=== PATIENT | female | born 1935 | race Caucasian/White ===

== ENCOUNTER 2021-12-10 00:26 | Inpatient (IN) ==
[2021-12-10 02:32] LABS: ABS Eosinophils 0.1 10^3/ul (0-0.6); ABS Lymphocytes 0.6 10^3/ul (1.0-4.8); ABS Monocytes 0.7 10^3/ul (0-0.8); ABS Neutrophils 5.3 10^3/ul (1.5-7.7); Eosinophil % 1.4 %; Hematocrit 32 % (35-47); Hemoglobin 10.7 g/dL (12.0-16.0); Lymphocyte % 8.8 %; Mean Corpuscular HGB Conc 34 g/dL (31-36); Mean Corpuscular Hemoglobin 31 pg (27-31); Mean Corpuscular Volume 91 fL (80-97); Mean Platelet Volume 7.6 fL (7.4-10.4); Nucleated Red Blood Cells % 0.1; Platelet Count 215 10^3/uL (150-450); Red Blood Count 3.49 10^6 /uL (3.70-4.87); Red Cell Distribution Width 14 % (10-15); White Blood Count 6.7 10^3/uL (3.5-10.8)
[2021-12-10 02:34] LABS: INR 2.03 (0.89-1.11)
[2021-12-10 02:46] LABS: High Sens Troponin Baseline 17 pg/mL (<15)
[2021-12-10 03:46] LABS: High Sensitivity Troponin 1 Hr 14 pg/mL (<15)
[2021-12-10 03:47] LABS: ALT 26 U/L (7-52); Albumin 3.3 g/dL (3.2-5.2); Albumin/Globulin Ratio 1.5 (1-3); Alkaline Phosphatase 81 U/L (35-149); Blood Urea Nitrogen 19 mg/dL (6-24); CO2 Carbon Dioxide 25 mmol/L (22-32); Calcium 8.6 mg/dL (8.6-10.3); Chloride 95 mmol/L (101-111); Globulin 2.2 g/dL (2-4); Glucose 76 mg/dL (70-100); Magnesium 1.8 mg/dL (1.9-2.7); Sodium 126 mmol/L (135-145); Total Protein 5.5 g/dL (6.4-8.9); eGFR CKD-EPI 90.3 (>60)
[2021-12-10 03:49] LABS: Anion Gap 6 mmol/L (2-11)
[2021-12-10 04:01] LABS: TSH Ultra Thyroid Stim Horm 3.69 mcIU/mL (0.34-5.60)
[2021-12-10] MEDS ORDERED: NS 0.9% 1000 ml BAG 1,000 ML IV ONE (04:14)
[2021-12-10 04:44] LABS: Potassium Redraw 3.4 mmol/L (3.5-5.0)
[2021-12-10 05:18] LABS: Urine Appearance Cloudy; Urine Bilirubin Negative (Negative); Urine Blood Negative (Negative); Urine Color Yellow; Urine Glucose Negative (Negative); Urine Ketones Trace (Negative); Urine Nitrite Negative (Negative); Urine Protein 1+(30 mg/dL) (Negative); Urine Specific Gravity 1.016 (1.002-1.030); Urine Urobilinogen Negative (Negative)
[2021-12-10 05:20] LABS: Urine Bacteria 1+ (Absent); Urine Red Blood Cell 2+(6-10/hpf) (Absent); Urine Squamous Epithelial Cell Present (Absent); Urine White Blood Cell Absent (Absent)
[2021-12-10] MEDS ORDERED: Magnesium Sulfate IV 1GM/100ML 1 GM/100 ML BAG IV ONE (08:01)
[2021-12-10] MEDS ORDERED: Potassium Chlor 20 meq TAB.ER PO ONE (08:02)
[2021-12-10] MEDS ORDERED: Enoxaparin 40 MG/0.4 ML SYR SUBCUT SCH (09:00)
[2021-12-10 10:10] LABS: Calcium 8.4 mg/dL (8.6-10.3); Potassium 4.5 mmol/L (3.5-5.0); eGFR CKD-EPI 93.1 (>60)
[2021-12-10] MEDS: Potassium Chlor 10 meq TAB PO SCH (10:29)
[2021-12-10] MEDS ORDERED: NS 0.9% 500 ml BAG 500 ML IV ONE (12:21)
[2021-12-10 15:50] LABS: Urine Osmo 491 mOsm/kg (150-1150)
[2021-12-11 05:53] LABS: ABS Basophils 0.1 10^3/ul (0-0.2); ABS Eosinophils 0.1 10^3/ul (0-0.6); ABS Lymphocytes 0.6 10^3/ul (1.0-4.8); ABS Monocytes 0.6 10^3/ul (0-0.8); ABS Neutrophils 6.6 10^3/ul (1.5-7.7); Eosinophil % 1.4 %; Hematocrit 38 % (35-47); Hemoglobin 12.5 g/dL (12.0-16.0); Lymphocyte % 7.9 %; Mean Corpuscular HGB Conc 33 g/dL (31-36); Mean Corpuscular Hemoglobin 30 pg (27-31); Mean Corpuscular Volume 91 fL (80-97); Mean Platelet Volume 7.8 fL (7.4-10.4); Nucleated Red Blood Cells % 0.1; Platelet Count 231 10^3/uL (150-450); Red Blood Count 4.13 10^6 /uL (3.70-4.87); Red Cell Distribution Width 14 % (10-15); White Blood Count 8.1 10^3/uL (3.5-10.8)
[2021-12-11 06:09] LABS: Calcium 8.6 mg/dL (8.6-10.3); Potassium 4.6 mmol/L (3.5-5.0); eGFR CKD-EPI 93.1 (>60)
[2021-12-11] MEDS: Potassium Chlor 10 meq TAB PO SCH (08:29)
[2021-12-11] MEDS ORDERED: NS 0.9% 500 ml BAG 500 ML IV ONE (15:51)
[2021-12-12 06:35] LABS: ABS Eosinophils 0.1 10^3/ul (0-0.6); ABS Lymphocytes 0.5 10^3/ul (1.0-4.8); ABS Monocytes 0.8 10^3/ul (0-0.8); ABS Neutrophils 11.6 10^3/ul (1.5-7.7); Eosinophil % 0.4 %; Hematocrit 34 % (35-47); Hemoglobin 11.3 g/dL (12.0-16.0); Mean Corpuscular HGB Conc 33 g/dL (31-36); Mean Corpuscular Hemoglobin 30 pg (27-31); Mean Corpuscular Volume 91 fL (80-97); Mean Platelet Volume 7.5 fL (7.4-10.4); Platelet Count 257 10^3/uL (150-450); Red Blood Count 3.76 10^6 /uL (3.70-4.87); Red Cell Distribution Width 14 % (10-15)
[2021-12-12 07:10] LABS: Calcium 8.6 mg/dL (8.6-10.3); Magnesium 1.5 mg/dL (1.9-2.7); Potassium 4.5 mmol/L (3.5-5.0); eGFR CKD-EPI 93.1 (>60)
[2021-12-12] MEDS ORDERED: Magnesium Sulf 4 GM/100 ML IV 4,000 MG/100 ML BAG IVPB ONE (08:00)
[2021-12-12] MEDS: Potassium Chlor 10 meq TAB PO SCH (09:42)
[2021-12-12 10:39] LABS: C Reactive Protein 17.12 mg/L (<8.01)
[2021-12-13 05:40] LABS: ABS Eosinophils 0.1 10^3/ul (0-0.6); ABS Lymphocytes 0.4 10^3/ul (1.0-4.8); ABS Monocytes 0.8 10^3/ul (0-0.8); ABS Neutrophils 9.2 10^3/ul (1.5-7.7); Eosinophil % 0.7 %; Hematocrit 35 % (35-47); Hemoglobin 11.7 g/dL (12.0-16.0); Lymphocyte % 4.1 %; Mean Corpuscular HGB Conc 34 g/dL (31-36); Mean Corpuscular Hemoglobin 30 pg (27-31); Mean Corpuscular Volume 91 fL (80-97); Mean Platelet Volume 7.4 fL (7.4-10.4); Nucleated Red Blood Cells % 0.1; Platelet Count 235 10^3/uL (150-450); Red Blood Count 3.86 10^6 /uL (3.70-4.87); Red Cell Distribution Width 14 % (10-15); White Blood Count 10.5 10^3/uL (3.5-10.8)
[2021-12-13 05:51] LABS: Albumin 2.9 g/dL (3.2-5.2); Albumin/Globulin Ratio 1.3 (1-3); Calcium 7.9 mg/dL (8.6-10.3); Globulin 2.2 g/dL (2-4); Potassium 3.7 mmol/L (3.5-5.0); Total Bilirubin 1.9 mg/dL (0.2-1.0); Total Protein 5.1 g/dL (6.4-8.9); eGFR CKD-EPI 87.9 (>60)
[2021-12-13 09:08] LABS: Magnesium 2.1 mg/dL (1.9-2.7)
[2021-12-13] MEDS: Potassium Chlor 10 meq TAB PO SCH (10:00)
[2021-12-13 12:00] LABS: Hepatitis B Surface Antigen Nonreactive (Nonreactive)
[2021-12-13 12:05] LABS: Hepatitis A Ab IgM Negative (Negative)
[2021-12-13 12:06] LABS: Hepatitis B Core IgM Nonreactive (Nonreactive)
[2021-12-13 12:18] LABS: Hepatitis C Antibody Negative (Negative)
[2021-12-14] MEDS: Potassium Chlor 10 meq TAB PO SCH (10:14)
[2021-12-14 12:34] LABS: Calcium 8.8 mg/dL (8.6-10.3); Potassium 3.8 mmol/L (3.5-5.0); eGFR CKD-EPI 75.8 (>60)
[2021-12-15 06:50] LABS: Albumin 3.2 g/dL (3.2-5.2); Albumin/Globulin Ratio 1.4 (1-3); Calcium 8.6 mg/dL (8.6-10.3); Globulin 2.3 g/dL (2-4); Total Bilirubin 0.9 mg/dL (0.2-1.0); Total Protein 5.5 g/dL (6.4-8.9); eGFR CKD-EPI 55.2 (>60)
[2021-12-15] MEDS: Potassium Chlor 10 meq TAB PO SCH (09:50)
[2021-12-16 06:44] LABS: Rapid COVID-19 Molecular Undetected (Undetected)
[2021-12-16 08:49] LABS: Calcium 8.8 mg/dL (8.6-10.3); Potassium 4.3 mmol/L (3.5-5.0)
[2021-12-16 08:54] LABS: eGFR CKD-EPI 85.5 (>60)
[2021-12-16] MEDS ORDERED: Potassium Chloride LIQUID 20 MEQ/15 ML LIQUID PO SCH (09:05)
[2021-12-16] MEDS: Potassium Chlor 10 meq TAB PO SCH (09:09)
[2021-12-16 09:35] VITALS: BP 115/42
[2021-12-16 22:48] LABS: Anaplasma phagocytophilum Negative (Negative); B. miyamotoi PCR, B Negative (Negative); Babesia divergens/MO-1 Negative (Negative); Babesia ducani Negative (Negative); Ehrlichia chaffeensis Negative (Negative); Ehrlichia ewingii/canis Negative (Negative); Ehrlichia muris eauclairensis Negative (Negative)
== END 2021-12-16 11:15 | DRG 641 ==
LOC: ED 00:26 → SUATTDRO 06:12 → EDHOLD 06:12 → MED 11:05
PROVIDERS: ADMIT Internal Medicine; ATTEND Hospitalist